=== PATIENT | male | born 1965 | race Caucasian/White ===

== ENCOUNTER 2023-09-20 01:48 | Outpatient (CLI) | payer MEDICARE, MEDICAID, SELFPAY ==
[2023-09-20 14:52] LABS: Abs Immature Grans 0.03 10^3/uL (0.0-0.06); Absolute Basophil Count 0.09 10^3/uL (0.0-0.2); Absolute Eosinophil Count 0.49 10^3/uL (0.0-0.7); Absolute Lymphocyte Count 2.55 10^3/uL (1.2-3.4); Absolute Monocyte Count 1.33 10^3/uL (0.1-0.8); Absolute Neutrophil Count 6.15 10^3/uL (1.2-6.7); Basophils % 0.8; Eosinophils % 4.6; HGB 15.6 g/dL (13.5-17.5); Immature Grans % 0.3; MCH 31.8 pg (27.0-33.0); MCHC 33.9 % (32.0-36.0); MCV 94 fL (80-95); MPV 9.1 fL (8.0-11.0); Monocytes % 12.5; Neutrophils % 57.8; Platelet Count 278 10^3/uL (130-400); RBC 4.91 10^6/uL (4.36-5.78); RDW 13.6 % (11.8-14.1); RDW-SD 46.5 fL; WBC 10.64 10^3/uL (4.4-10.8)
[2023-09-20 15:43] LABS: Hemoglobin A1C 7.3 % (<5.7)
[2023-09-20 15:57] LABS: ALT 35 U/L (16-63); AST 22 U/L (15-37); Alkaline Phosphatase 108 U/L (46-116); Anion Gap 11.5 mmol/L (3-11); BUN 8 mg/dL (7-18); Bilirubin, Total 0.5 mg/dL (0.2-1.0); CO2 27.5 mmol/L (21.0-32.0); CREATININE 0.8 mg/dL (0.70-1.30); Calcium 9.5 mg/dL (8.5-10.1); Calculated LDL 132 mg/dL (<100); Chloride 95 mmol/L (98-107); Cholesterol 211 mg/dL (<200); Estimated GFR 101.32 (mL/min/1.73m2); Glucose 148 mg/dL (74-106); HDL Cholesterol 68 mg/dL (40-60); Potassium 4.5 mmol/L (3.5-5.1); Sodium 134 mmol/L (136-145); Total Protein 8.9 g/dL (6.4-8.2); Triglyceride 55 mg/dL (<150)
[2023-09-20 16:06] LABS: COMMENT (LAB VIEW ONLY) 118.74 mg/dL
[2023-09-20 16:15] LABS: Microalb ug/mg Crea 101.1 ug/mg Cr
== END 2023-09-20 01:49 | disposition home or self-care (01) ==
LOC: LBO 01:49
PROVIDERS: Visit Provider Family Medicine
DX: E78.5 Hyperlipidemia, unspecified (principal); E11.9 Type 2 diabetes mellitus without complications; I10 Essential (primary) hypertension
CPT/HCPCS: 36415; 80053; 80061; 82043; 82570; 83036; 85025

== ENCOUNTER 2024-10-28 03:20 | Outpatient (CLI) | payer MEDICARE, MEDICAID, SELFPAY ==
[2024-10-28 09:15] LABS: Abs Immature Grans 0.02 10^3/uL (0.0-0.06); Absolute Basophil Count 0.07 10^3/uL (0.0-0.2); Absolute Eosinophil Count 0.45 10^3/uL (0.0-0.7); Absolute Lymphocyte Count 2.47 10^3/uL (1.2-3.4); Absolute Monocyte Count 1.17 10^3/uL (0.1-0.8); Absolute Neutrophil Count 3.97 10^3/uL (1.2-6.7); Basophils % 0.9 %; Eosinophils % 5.5 %; HCT 43.5 % (40.0-50.0); HGB 14.6 g/dL (13.5-17.5); Immature Grans % 0.2 %; Lymphocytes % 30.3 %; MCH 31.6 pg (27.0-33.0); MCHC 33.6 % (32.0-36.0); MCV 94 fL (80-95); MPV 9.5 fL (8.0-11.0); Monocytes % 14.4 %; Neutrophils % 48.7 %; Platelet Count 237 10^3/uL (130-400); RBC 4.62 10^6/uL (4.36-5.78); RDW 13.6 % (11.8-14.1); RDW-SD 47.2 fL; WBC 8.15 10^3/uL (4.4-10.8)
[2024-10-28 09:36] LABS: COMMENT (LAB VIEW ONLY) 89.84 mg/dL
[2024-10-28 09:37] LABS: Microalb ug/mg Crea 146.6 ug/mg Cr
[2024-10-28 09:42] LABS: ALT 47 U/L (16-63); AST 34 U/L (15-37); Albumin 3.9 g/dL (3.4-5.0); Alkaline Phosphatase 95 U/L (46-116); Anion Gap 9.9 mmol/L (3-11); BUN 19 mg/dL (7-18); Bilirubin, Total 0.3 mg/dL (0.2-1.0); CO2 27.1 mmol/L (21.0-32.0); CREATININE 0.9 mg/dL (0.70-1.30); Calcium 9.5 mg/dL (8.5-10.1); Chloride 98 mmol/L (98-107); Estimated GFR 97.17 (mL/min/1.73m2); Glucose 139 mg/dL (74-106); Potassium 4.6 mmol/L (3.5-5.1); Sodium 135 mmol/L (136-145); Total Protein 8.3 g/dL (6.4-8.2)
[2024-10-28 09:55] LABS: Calculated LDL 123 mg/dL (<100); Cholesterol 197 mg/dL (<200); HDL Cholesterol 63 mg/dL (>or=40); Triglyceride 58 mg/dL (<150)
[2024-10-28 09:59] LABS: Hemoglobin A1C 6.8 % (<5.7)
[2024-10-28 21:28] LABS: PSA, Screening 1.7 ng/mL (<=4.5)
== END 2024-10-28 03:21 | disposition home or self-care (01) ==
LOC: LBO 03:21
PROVIDERS: Visit Provider Family Medicine
DX: E78.00 Pure hypercholesterolemia, unspecified (principal); E11.69 Type 2 diabetes mellitus with other specified complication; I10 Essential (primary) hypertension; Z12.5 Encounter for screening for malignant neoplasm of prostate
CPT/HCPCS: 36415; 80053; 80061; 84153; 82043; 82570; 83036; 85025